=== PATIENT | female | born 1970 | race Caucasian/White ===

== ENCOUNTER 2025-02-13 20:04 | Observation (INO) | payer BC ==
[~2025-02-13] VITALS: Ht 154.9 cm; Wt 62.1 kg
[2025-02-13 20:46] LABS: BASOPHILS # (AUTO) 0.1 (0.0-0.1); BASOPHILS % 0.7 % (0.0-1.0); EOSINOPHILS # (AUTO) 0.1 (0.0-0.4); EOSINOPHILS % 0.7 % (0.0-6.0); HEMATOCRIT 41.4 % (34.2-44.1); HEMOGLOBIN 13.3 g/dL (12.0-16.0); LYMPHOCYTES % 42.5 % (18.0-39.1); MEAN CORPUSCULAR HEMOGLOBIN 26.4 pg (28-32); MEAN CORPUSCULAR HGB CONC 32.1 g/dL (31-35); MEAN CORPUSCULAR VOLUME 82.3 fL (81-99); MONOCYTES # (AUTO) 0.4 (0.2-0.8); NEUTROPHILS # (AUTO) 3.5 (2.1-6.9); PLATELET COUNT 215 x10e3/uL (140-360); RED BLOOD COUNT 5.03 x10e6/uL (3.6-5.1); RED CELL DISTRIBUTION WIDTH 13.1 % (11.7-14.4); WHITE BLOOD COUNT 6.94 x10e3/uL (4.8-10.8)
[2025-02-13 20:50] VITALS: TEMP 98.3
[2025-02-13 21:08] LABS: ALBUMIN 4.3 g/dL (3.5-5.0); ALBUMIN/GLOBULIN RATIO 1.4 (0.8-2.0); ANION GAP 13.8 mmol/L (8-16); BILIRUBIN,TOTAL 0.5 mg/dL (0.2-1.2); CALCIUM 10.1 mg/dL (8.4-10.2); CREATININE, SERUM 0.85 mg/dL (0.57-1.11); POTASSIUM 3.8 mmol/L (3.5-5.1); TOTAL PROTEIN 7.4 g/dL (6.5-8.1)
[2025-02-13] MEDS ORDERED: IOPAMIDOL 370 MG/ML 100 ML INFUS..BTL INJ ONE (21:11)
[2025-02-13 21:14] LABS: TROPONIN I 0.004 ng/mL (0-0.300)
[2025-02-13 22:07] VITALS: PULSE 119; RESP 16
[2025-02-13] MEDS: SODIUM CHLORIDE 0.9% 1000ML 1,000 ML IV STA (22:13)
[2025-02-13] MEDS: METOPROLOL TARTRATE INJ 1 MG/ML VIAL IV STA (22:14)
[2025-02-13] MEDS ORDERED: ONDANSETRON HCL INJ 2MG/ML 2ML 2 MG/ML VIAL IV PRN (22:15)
[2025-02-13] MEDS ORDERED: Morphine 2mg Syringe 2 MG/ML SYR IV PRN (22:15)
[2025-02-13] MEDS: SODIUM CHLORIDE 0.9% 1000ML 1,000 ML IV SCH (22:58)
[2025-02-13 23:35] VITALS: PULSE 89; RESP 16; O2SAT 96
[2025-02-14] VITALS (12 sets, daily range): BP systolic 122–136; BP diastolic 61–90; PULSE 82–89; RESP 16–18; TEMP 97.5–98.2; O2SAT 95–100
[2025-02-14] MEDS ORDERED: MOUNJARO7.5 MG/0.5 SC (01:46)
[2025-02-14 06:05] LABS: BASOPHILS % 0.3 % (0.0-1.0); EOSINOPHILS % 0.2 % (0.0-6.0); HEMATOCRIT 36.3 % (34.2-44.1); HEMOGLOBIN 11.8 g/dL (12.0-16.0); LYMPHOCYTES # (AUTO) 2.4 (1.0-3.2); MEAN CORPUSCULAR HEMOGLOBIN 26.6 pg (28-32); MEAN CORPUSCULAR HGB CONC 32.5 g/dL (31-35); MEAN CORPUSCULAR VOLUME 81.9 fL (81-99); MONOCYTES # (AUTO) 0.3 (0.2-0.8); MONOCYTES % 4.7 % (4.4-11.3); NEUTROPHILS # (AUTO) 3.6 (2.1-6.9); NEUTROPHILS % 56.5 % (38.7-80.0); PLATELET COUNT 169 x10e3/uL (140-360); RED BLOOD COUNT 4.43 x10e6/uL (3.6-5.1); RED CELL DISTRIBUTION WIDTH 13.1 % (11.7-14.4); WHITE BLOOD COUNT 6.34 x10e3/uL (4.8-10.8)
[2025-02-14 06:24] LABS: ALBUMIN 3.3 g/dL (3.5-5.0); ALBUMIN/GLOBULIN RATIO 1.4 (0.8-2.0); BILIRUBIN,TOTAL 0.5 mg/dL (0.2-1.2); CALCIUM 9.2 mg/dL (8.4-10.2); CREATININE, SERUM 0.75 mg/dL (0.57-1.11); TOTAL PROTEIN 5.7 g/dL (6.5-8.1)
[2025-02-14 07:02] LABS: FREE THYROXINE INDEX 1.8199 (1.4-3.8); T3 UPTAKE 34.21 % (22.5-37.0); THYROID STIMULATING HORMONE 0.587 uIU/mL (0.350-4.940)
[2025-02-14 07:03] LABS: T4 (THYROXINE) 5.32 ug/dL (4.5-10.9)
[2025-02-14 08:27] LABS: TROPONIN I 0.014 ng/mL (0-0.300)
[2025-02-14 15:15] LABS: PHOSPHORUS 2.4 MG/DL (2.3-4.7)
[2025-02-14 15:24] LABS: TROPONIN I 0.012 ng/mL (0-0.300)
[2025-02-14] MEDS ORDERED: TIRZEPATIDE 7.5 MG SC SCH (19:45)
[2025-02-15] VITALS: BP 114/78; PULSE 87; RESP 16; TEMP 98; O2SAT 100
[2025-02-15 04:00] VITALS: BP 107/78; PULSE 78; RESP 20; TEMP 97.7; O2SAT 100
[2025-02-15 08:35] VITALS: BP 107/78; PULSE 78; RESP 20; TEMP 97.7; O2SAT 100
[2025-02-15 08:55] VITALS: BP 105/82; PULSE 78; RESP 18; TEMP 97.8; O2SAT 100
== END 2025-02-15 08:45 | disposition home or self-care (01) ==
LOC: ER 20:07 → ERHOLD 22:15 → MED/SURG3 23:32
PROVIDERS: ADMIT Internal Medicine; ATTEND Internal Medicine
DX: R00.0 Tachycardia, unspecified (principal); R00.2 Palpitations; I10 Essential (primary) hypertension; E04.1 Nontoxic single thyroid nodule; D64.9 Anemia, unspecified
CPT/HCPCS: 36415 ×2; 70496; 70498; 71045; 80053 ×2; 82550 ×2; 83690; 83735; 83880; 84100; 84436; 84443; 84479; 84484 ×2; 85025 ×2; 93005; 93306; 94799 ×2; 99284; G0378 ×3; J7030 ×2; Q9967